=== PATIENT | male | born 1995 | race Two or more races ===

== ENCOUNTER 2025-04-29 15:38 | Emergency (ER) | payer OTHER ==
[~2025-04-29] VITALS: Ht 190.5 cm; Wt 93.0 kg
[2025-04-29] MEDS ORDERED: DEXAMETHASONE SODIUM PHOSPHATE 4 MG/ML VIAL IM ONE (17:15)
[2025-04-29] MEDS ORDERED: DEXAMETHASONE SODIUM PHOSPHATE 4 MG/ML VIAL ONE (17:24)
[2025-04-29 18:25] LABS: BASO % 0.3 % (0.1-1.2); EOS # 0.07 (0.04-0.54); EOS % 0.9 % (0.7-7.0); LYMPH # 1.52 (1.18-3.74); LYMPH % 20.5 % (19.3-53.1); MEAN PLATELET VOLUME 9.50 fl (9.4-12.4); MONO # 0.58 (0.24-0.82); MONO % 7.8 % (4.7-12.5); NEUT # 5.21 (1.56-6.13); NEUT % 70.4 % (34.0-71.1); RED CELL DISTRIBUTION WIDTH 11.7 % (11.6-14.4)
[2025-04-29 18:58] LABS: COVID-19 AG NEGATIVE (NEGATIVE)
[2025-04-29] MEDS ORDERED: ZITHROMAX500 MG PO (19:12)
== END 2025-04-29 20:19 | disposition home or self-care (01) ==
LOC: ER 16:56
PROVIDERS: General Practice
DX: B34.9 Viral infection, unspecified (principal); Z20.822 Contact with and (suspected) exposure to COVID-19